=== PATIENT | female | born 1930 | race Caucasian/White ===

== ENCOUNTER 2017-03-24 15:18 | Inpatient (IN) | END 2017-03-27 19:10 | disposition home or self-care (01) | DRG 312 ==

== ENCOUNTER 2017-04-07 09:43 | Outpatient (CLI) | END 2017-04-07 17:00 | disposition home or self-care (01) ==

== ENCOUNTER 2017-04-08 09:07 | Inpatient (IN) | END 2017-04-14 12:20 | disposition home or self-care (01) | DRG 435 ==

== ENCOUNTER 2017-04-26 09:52 | Outpatient (CLI) | END 2017-04-26 13:14 | disposition home or self-care (01) ==

== ENCOUNTER 2017-08-16 20:01 | Inpatient (IN) | END 2017-08-19 17:46 | disposition hospice, home (50) | DRG 83 ==